=== PATIENT | female | born 1985 | race Caucasian/White ===

== ENCOUNTER → 2017-07-27 | Outpatient (CLI) | payer MEDICAID ==
--- NOTE | 2017-07-27 14:15 | KCIC ---
OB ultrasound History: Anatomic survey. Comparison: None. Findings: There is a single intrauterine gestation in cephalic presentation. The placenta is posterior and fundal in location without evidence of placenta previa. The amount of amniotic fluid appears appropriate. Amniotic fluid index is 9.9 cm. Cervix is closed with cervical length of 3.41 cm cm. Biometric data is as follows: BPD = 4.63 cm for 20 weeks 0 days. HC = 17.26 cm for 19 weeks 6 days. AC = 14.78 cm for 20 weeks 0 days. FL = 3.37 cm for 20 weeks 4 days. HC/AC = 1.17, within normal limits. Overall, the average ultrasound age is 20 weeks 1 day for an estimated date of delivery of December 13, 2017. Estimated gestational age by last menstrual period calculation is 19 weeks 6 days. Estimated weight is 341 +/- 50 grams. A 4 chamber heart is identified with positive cardiac activity. The estimated heart rate is 131 beats per minute. Bilateral upper and lower extremities are identified. There is a three-vessel cord with cord insertion visualized. stomach and urinary bladder are identified. Both kidneys are seen. The spine and brain are unremarkable. Nose and lips are not well visualized. No gross abnormalities are identified. gender appears female. Maternal ovaries are not visualized. IMPRESSION: 1. Single live intrauterine with average ultrasound age of 20 weeks 1 day. Estimated delivery based on ultrasound measurements is December 13, 2017. 2. Nose and lips are not well visualized. No anatomic anomaly is seen. Electronically signed by: Jack Cagle MD (07/27/2017 2:12 PM) [id number]
== END | disposition home or self-care (01) ==
LOC: KCIC US 10:48
PROVIDERS: ATTEND Family Medicine
DX: Z34.82 Encounter for supervision of other normal pregnancy, second trimester (principal); Z3A.20 20 weeks gestation of pregnancy
CPT/HCPCS: 76805

== ENCOUNTER → 2017-09-29 | Outpatient (CLI) | payer MEDICAID | END | disposition home or self-care (01) | LOC: KCIC US 13:26 | DX: Z34.92 Encounter for supervision of normal pregnancy, unspecified, second trimester (principal); Z3A.28 28 weeks gestation of pregnancy | CPT/HCPCS: 76805 ==